=== PATIENT | female | born 1995 | race American Indian/Alaskan Native ===

== ENCOUNTER 2018-05-16 17:39 | Emergency (ER) | payer OTHER ==
--- NOTE | 2018-05-16 18:56 | Emergency Department Report ---
Blank Doc - Documentation Documentation: This is a 22-year-old female that presents with left ankle pain and swelling. This initial assessment/diagnostic orders/clinical plan/treatment(s) is/are subject to change based on patient's health status, clinical progression and re- assessment by fellow clinical providers in the ED. Further treatment and workup at subsequent clinical providers discretion. Patient/guardians urged not to elope from the ED as their condition may be serious if not clinically assessed and managed. Initial orders include: 1- Patient sent to [facility] for further evaluation and treatment 2- xray
[2018-05-16 18:59] VITALS: BP 146/93
--- NOTE | 2018-05-16 21:01 | XRay Report ---
PROCEDURE: XR ANKLE 3+V LT TECHNIQUE: Left ankle radiographs, AP, lateral, and oblique views. HISTORY: ankle pain COMPARISONS: None . FINDINGS: Fracture (s) and/or Dislocation(s): None . Alignment: Normal . Joint space(s): Normal . Soft tissues: Normal . Bone mineralization: Normal . Foreign bodies: None . Calcaneal spurring: None . IMPRESSION: Unremarkable study. This document is electronically signed by Gilbert Connor MD., May 16 2018 09:00:03 PM ET
--- NOTE | 2018-05-17 00:39 | Emergency Department Report ---
ED Extremity Problem HPI - General Chief complaint: Extremity Injury, Lower Stated complaint: LFT ANKLE EXTREME PAIN Time Seen by Provider: 05/16/18 18:55 Source: patient Mode of arrival: Ambulatory Limitations: No Limitations - History of Present Illness Initial comments: Pt is a 22 yo female who presents to the ED with c/o left ankle pain that began three days ago. She denies any injury, trauma, or fall. [place]. She does not wear compression stockings. She denies any recent surgery, travel, or immobilization. Severity scale (0 -10): 10 - Related Data Previous Rx's Medication Instructions Recorded Last Taken Type Diclofenac Sodium 75 mg PO DAILY #20 tablet. 05/17/18 Unknown Rx Allergies Allergy/AdvReac Type Severity Reaction Status Date / Time No Known Allergies Allergy Unverified 05/16/18 17:55 ED Review of Systems ROS: Stated complaint: LFT ANKLE EXTREME PAIN Other details as noted in HPI Comment: All other systems reviewed and negative ED Past Medical Hx - Past Medical History Previous Medical History?: No - Surgical History Past Surgical History?: Yes Additional Surgical History: T&A - Social History Smoking Status: Current Every Day Smoker Substance Use Type: None - Medications Home Medications: Home Medications Medication Instructions Recorded Confirmed Last Taken Type Diclofenac Sodium 75 mg PO DAILY #20 tablet. 05/17/18 Unknown Rx ED Physical Exam - General Limitations: No Limitations General appearance: alert, in no apparent distress - Head Head exam: Present: atraumatic, normocephalic - Eye Eye exam: Present: normal appearance - ENT ENT exam: Present: mucous membranes moist - Extremities Exam Extremities exam: Present: normal inspection, full ROM (FROM of the left ankle with some pain ), tenderness (TTP over the left lateral mallelous ), normal capillary refill, other (no significant swelling, good pulses, neurovascularly intact, no joint laxity ). Absent: pedal edema, joint swelling ED Course Vital Signs 05/16/18 18:55 Temperature 98.5 F Pulse Rate 83 Respiratory 18 Rate Blood Pressure 146/93 Blood Pressure 146/93 [Left] O2 Sat by Pulse 100 Oximetry ED Medical Decision Making - Radiology Data Radiology results: report reviewed TECHNIQUE: Left ankle radiographs, AP, lateral, and oblique views. HISTORY: ankle pain COMPARISONS: None . FINDINGS: Fracture (s) and/or Dislocation(s): None . Alignment: Normal . Joint space(s): Normal . Soft tissues: Normal . Bone mineralization: Normal . Foreign bodies: None . Calcaneal spurring: None . IMPRESSION: Unremarkable study. This document is electronically signed by Gilbert Connor MD., May 16 2018 09:00:03 PM ET - Medical Decision Making Pt is a 22 yo female who presents to the ED with c/o left ankle pain that began three days ago. She denies any injury, trauma, or fall. The patient [place] her feet frequently. She does not wear compression stockings. She denies any recent surgery, travel, or immobilization. XR with no acute process. Patient is ambulatory. No significant edema, FROM of the right ankle with some pain, neurovascularly intact, no joint laxity, TTP of the left lateral malleolus. Will give pt anti-inflammatory. Advised pt to begin to wear compression stockings at work. Advised to use rest, elevation, and ice. Will have pt follow up with Dr. Canas ortho. Discussed with pt to return to the ED for any new or worsening symptoms. - Differential Diagnosis fx, dislocation, strain, sprain Critical care attestation.: If time is entered above; I have spent that time in minutes in the direct care of this critically ill patient, excluding procedure time. ED Disposition Clinical Impression: Left ankle pain Qualifiers: Chronicity: acute Qualified Code(s): M25.572 - Pain in left ankle and joints of left foot Disposition: DC-01 TO HOME OR SELFCARE Is pt being admited?: No Does the pt Need Aspirin: No Condition: Stable Instructions: Arthralgia (ED) Additional Instructions: please follow up with Dr. Canas, orthopedic, and primary care doctor in the next 2-3 days. Take medication as prescribed. Use ice, elevation, and rest. May use your ankle brace during the day while walking around. Return to the emergency room for any new or worsening symptoms. Prescriptions: Diclofenac Sodium 75 mg PO DAILY #20 tablet. Referrals: DENICE BLANCHARDMACEDONIA MD PATRICK [Primary Care Provider] - 2-3 Days ADITI CANAS MD [Staff Physician] - 2-3 Days Time of Disposition: 00:42 Print Language: SYRIAN
== END 2018-05-17 01:01 | disposition home or self-care (01) ==
LOC: ED 17:39
DX: M25.572 Pain in left ankle and joints of left foot (principal); F17.200 Nicotine dependence, unspecified, uncomplicated